=== PATIENT | female | born 1970 | race Caucasian/White ===

== ENCOUNTER 2017-02-12 19:20 | Emergency (ER) | payer MEDICAID ==
[~2017-02-12] VITALS: Ht 154.9 cm; Wt 76.7 kg
[2017-02-12 20:47] VITALS: BP 150/70
--- NOTE | 2017-02-13 00:59 | NUR ---
TO ER BED 3
--- NOTE | 2017-02-13 01:11 | NUR ---
MD CAME AT BEDSIDE TO EVALUATE PT.
[2017-02-13] MEDS ORDERED: PHENAZOPYRIDINE 100 MG TAB PO ONE (01:30)
[2017-02-13] MEDS ORDERED: IBUPROFEN 800 MG TAB PO ONE (01:30)
[2017-02-13] MEDS ORDERED: SULFAMETH/TRIMETH DS 800/160MG 1 TAB PO ONE (01:30)
--- NOTE | 2017-02-13 01:38 | NUR ---
MOTRIN 800 MG PO AND PYRIDIUM 100 MG PO GIVEN. BACTRIM DS NOT AVAILABLE VIA [facility]. 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
--- NOTE | 2017-02-13 01:44 | NUR ---
Oriana langley in [facility] - 02/13/17 at 0146 by [id number] NAT RUSSO AGAIN CALLED AT BUT STILL NOBODY PICKED UP.
[2017-02-13] MEDS ORDERED: SULFAMETH/TRIMETH DS 800/160MG 1 TAB ONE (01:48)
--- NOTE | 2017-02-13 01:53 | NUR ---
BACTRIM DS 1 TAB PO GIVEN ORDERED.
--- NOTE | 2017-02-13 02:12 | NUR ---
Patient discharged with v/s stable. Written and verbal after care instructions given and explained. Patient alert, oriented and verbalized understanding of instructions. Ambulatory with steady gait. All questions addressed prior to discharge. ID band removed. Patient advised to follow up with PMD. Rx of MOTRIN,PYRIDIUM AND BACTRIM given. Patient educated on indication of medication including possible reaction and side effects. Opportunity to ask questions provided and answered.
[2017-02-13 02:24] VITALS: BP 114/78
== END 2017-02-13 02:12 | disposition home or self-care (01) ==
LOC: MED 19:20
DX: N39.0 Urinary tract infection, site not specified (principal); I10 Essential (primary) hypertension